=== PATIENT | female | born 1970 | race Caucasian/White ===

== ENCOUNTER 2018-01-03 19:49 | Emergency (ER) | payer BC, MEDICAID ==
[~2018-01-03] VITALS: Ht 167.6 cm; Wt 68.0 kg
[2018-01-03] MEDS ORDERED: ONDANSETRON HCL 4MG/2ML VIAL IV STA (22:03)
[2018-01-03] MEDS ORDERED: SODIUM CHLORIDE 0.9% 1,000 ML IV ONE (22:03)
[2018-01-03] MEDS ORDERED: MECLIZINE 25MG TABLET PO ONE (22:15)
[2018-01-03 22:44] LABS: CLARITY URINE CLEAR (CLEAR); COLOR URINE YELLOW (YELLOW); KETONES URINE NEGATIVE (NEGATIVE); LEUKOCYTE ESTERASE URINE NEGATIVE (NEGATIVE); NITRITE URINE NEGATIVE (NEGATIVE); OCCULT BLOOD URINE NEGATIVE (NEGATIVE); PH URINE 7.5 (4.5-8.0); PROTEIN URINE NEGATIVE (NEGATIVE); SPECIFIC GRAVITY URINE 1.014 (1.005-1.030); UROBILINOGEN URINE 0.2 E.U./dL (0.2-1.0)
[2018-01-03 22:56] LABS: BASOPHILS % 0.7 % (0.0-2.0); EOSINOPHILS % 0.8 % (0.0-5.0); HEMATOCRIT. 40.8 % (36.0-48.0); HEMOGLOBIN. 13.5 g/dL (12.0-16.0); LYMPHOCYTES % 35.9 % (20.0-50.0); MEAN CORPUSCULAR HEMOGLOBIN 29.2 pg (28.0-32.0); MEAN CORPUSCULAR VOLUME 88.3 fL (81.0-99.0); MEAN PLATELET VOLUME 8.4 fl (7.4-10.4); MONOCYTES % 8.1 % (2.0-8.0); NEUTROPHILS % 54.5 % (40.0-76.0); PLATELET 391 x1000/uL (130-400); RED BLOOD CELL COUNT 4.62 mill/uL (4.2-5.4); RED CELL DISTRIBUTION WIDTH 14.7 % (11.6-14.6)
[2018-01-03 23:00] LABS: HCG SCREEN NEGATIVE
[2018-01-03 23:04] LABS: CHLORIDE 110 mEq/L (98-107)
[2018-01-03 23:08] LABS: D-DIMER 0.21 mg/L FEU (<0.50); PARTIAL THROMBOPLASTIN TIME 24.7 sec (23.4-31.0); PROTHROMBIN TIME 10.1 sec (9.4-11.6)
[2018-01-04 00:09] VITALS: BP 121/71
== END 2018-01-04 00:11 | disposition home or self-care (01) ==
LOC: ER 19:53
DX: E86.0 Dehydration (principal); R11.2 Nausea with vomiting, unspecified
CPT/HCPCS: 36415; 70450; 71045; 80053; 81003; 83690; 83880; 84443; 84484; 84703; 85025; 85379; 85610; 85730; 93005; 96361; 96374; 99285; J2405; J7030; J8597

== ENCOUNTER 2024-03-27 11:43 | Emergency (ER) | payer MEDICAID ==
[~2024-03-27] VITALS: Ht 157.5 cm; Wt 68.0 kg
[2024-03-27 11:59] VITALS: O2SAT 98
[2024-03-27] MEDS ORDERED: CEPH500T MT (13:53)
[2024-03-27] MEDS ORDERED: MUPI22OI2 TP (13:53)
[2024-03-27 14:05] VITALS: BP 126/76; PULSE 76; RESP 16; TEMP 97.9
== END 2024-03-27 14:07 | disposition home or self-care (01) ==
LOC: ER 11:43
DX: L60.0 Ingrowing nail (principal)
CPT/HCPCS: 99283

== ENCOUNTER 2024-04-12 20:16 | Emergency (ER) | payer MEDICAID ==
[~2024-04-12] VITALS: Ht 165.1 cm; Wt 68.0 kg
[~2024-04-12 20:16] MED LIST: CEPH500T MT; MUPI22OI2 TP
[2024-04-12 20:31] VITALS: O2SAT 99
[2024-04-12 21:20] LABS: CLARITY URINE CLOUDY (CLEAR); COLOR URINE YELLOW (YELLOW); GLUCOSE URINE NEGATIVE (NEGATIVE); KETONES URINE NEGATIVE (NEGATIVE); LEUKOCYTE ESTERASE URINE 3+ (NEGATIVE); NITRITE URINE NEGATIVE (NEGATIVE); OCCULT BLOOD URINE 3+ (NEGATIVE); PH URINE 5.5 (4.5-8.0); PROTEIN URINE 1+ (NEGATIVE); SPECIFIC GRAVITY URINE 1.016 (1.005-1.030); UROBILINOGEN URINE 0.2 E.U./dL (0.2-1.0)
[2024-04-12 21:38] LABS: BACTERIA URINE 1+; RBC URINE TNTC /hpf (0-2); SQUAMOUS EPITHELIAL CELL URINE 2+ /lpf (RARE/1+); WBC URINE TNTC /hpf (0-2)
[2024-04-12] MEDS ORDERED: CEFP100T8 MT (22:08)
[2024-04-12 22:28] VITALS: BP 145/83; PULSE 80; RESP 20; TEMP 97.8
== END 2024-04-12 22:29 | disposition home or self-care (01) ==
LOC: ER 20:16
DX: N39.0 Urinary tract infection, site not specified (principal)
CPT/HCPCS: 81003; 99283